=== PATIENT | female | born 2000 | race Caucasian/White ===

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

== ENCOUNTER → 2019-11-10 | Outpatient (CLI) | payer OTHER, SELFPAY ==
[~2019-11-10] MED LIST changes: -TRAZ-160; +TRAZ-252; +TRAZ1TAB10 PO; -TRAZO50TA PO
--- NOTE | 2019-11-10 16:46 | REP ---
TWO-VIEW CHEST: REASON: Asthma. COMPARISON: 10/13/2018, the only prior. FINDINGS: The superior mediastinal structures are midline. The cardiac silhouette is unremarkable in size, shape, and position. The diaphragmatic surfaces of the lungs are regular, and the costophrenic angles are clear. The pulmonary abrams are clear. The imaged osseous structures are intact. IMPRESSION: There is no acute cardiopulmonary disease. Electronically Signed by Jacob Rodgers DO 11/11/2019 11:18 A
== END ==
LOC: M LRY 14:32
PROVIDERS: ATTEND Nurse Practitioner Family
DX: J45.901 Unspecified asthma with (acute) exacerbation (principal)